=== PATIENT | female | born 1950 | race Caucasian/White ===

== ENCOUNTER 2021-01-24 05:58 | Inpatient (IN) | payer MEDICARE ==
[2021-01-24 06:15] VITALS: BMI 22.3
[2021-01-24 06:57] LABS: #Eosinphils 0.1 thou/uL (0.0-0.7); #Lymphocytes 1.3 thou/uL (1.20-3.40); #Monocytes 0.8 thou/uL (0.11-0.59); #Neutrophils 9.1 thou/uL (1.40-6.50); %Basophils 0.2 % (0.0-1.0); %Eosinophils 0.6 % (0.0-10.0); %Lymphocytes 11.8 % (21.0-51.0); %Monocytes 6.8 % (0.0-10.0); %Neutrophils 80.6 % (42.0-75.0); Hemoglobin 12.1 g/dL (12.0-16.0); Mean Corpuscular HGB CONC 33.9 g/dL (32.0-36.0); Mean Corpuscular Hemoglobin 32.4 pg (27.0-31.0); Mean Corpuscular Volume 95.7 fL (78.0-98.0); Mean Platelet Volume 7.8 fL (7.4-10.4); Platelet Count 258 thou/uL (130-400); RBC Distribution Width 11.7 % (11.5-14.5); Red Blood Cell (RBC) Count 3.72 mill/uL (4.20-5.40); White Blood Cell (WBC) Count 11.3 thou/uL (4.8-10.8)
[2021-01-24 07:20] LABS: ALT (SGPT) 25 U/L (8-55); AST (SGOT) 20 U/L (5-34); Albumin 3.8 g/dL (3.4-4.8); Alkaline Phosphatase 105 U/L (40-110); Anion Gap 11 mmol/L (10-20); BUN (Urea Nitrogen) 16 mg/dL (9.8-20.1); Bilirubin, Total 0.9 mg/dL (0.2-1.2); Calc. Creatinine Clearance 45 mL/min (70-130); Calcium 9.6 mg/dL (7.8-10.44); Carbon Dioxide 29 mmol/L (23-31); Chloride 104 mmol/L (98-107); Globulin 2.6 g/dL (2.4-3.5); Glucose 108 mg/dL (83-110); Potassium 3.9 mmol/L (3.5-5.1); Protein, Total 6.4 g/dL (5.8-8.1); Sodium 140 mmol/L (136-145)
[2021-01-24] MEDS ORDERED: Bupivacaine PF 0.5% 30 ML VIAL ONE (07:25)
[2021-01-24] MEDS ORDERED: EPINEPHrine 1 MG/ML AMP ONE (07:25)
[2021-01-24] MEDS: Morphine 4 MG/ML VIAL SLOW IVP PRN ×3 (07:28→22:04)
[2021-01-24] MEDS ORDERED: Piperacillin/Tazobactam 3.375 GM in Sodium Chloride 0.9% 100 ML IVPB SCH (07:30)
[2021-01-24] MEDS ORDERED: Phenylephrine 10 MG/ML VIAL ONE (07:34)
[2021-01-24] MEDS ORDERED: Piperacillin/Tazobactam 3.375 GM VIAL ONE ×2 (07:43→08:00)
[2021-01-24] MEDS ORDERED: Sodium Chloride 0.9% 100 ML ONE (08:00)
[2021-01-24] MEDS: Sodium Chloride 0.9% 1,000 ML IV SCH ×2 (08:26→14:10)
[2021-01-24 08:32] LABS: SARS-CoV-2 NAA Rapid Test Not Detected (NotDetected)
[2021-01-24] MEDS ORDERED: PROPOFOL 200 MG/20 ML VIAL ONE (08:34)
[2021-01-24] MEDS ORDERED: Glycopyrrolate 0.2 MG/ML 5 ML SYRINGE ONE (08:34)
[2021-01-24] MEDS ORDERED: Bupivacaine HCl 0.5%/Epinephrine 1:200,000/PF 30 ml Vial ONE (08:34)
[2021-01-24] MEDS ORDERED: Rocuronium Bromide 10 MG/ML (10ML VIAL) ONE (08:34)
[2021-01-24] MEDS ORDERED: Dexamethasone 20 MG/5 ML VIAL ONE (08:34)
[2021-01-24] MEDS ORDERED: Ondansetron PF 4 MG/2 ML Vial ONE (08:34)
[2021-01-24] MEDS ORDERED: Succinylcholine 200 MG/10 ml SYRINGE FS ONE (08:34)
[2021-01-24] MEDS ORDERED: Lidocaine 1% PF 5 ML VIAL ONE (08:34)
[2021-01-24] MEDS ORDERED: Promethazine HCl 25 MG/ML VIAL IVPB PRN (09:35)
[2021-01-24] MEDS ORDERED: Meperidine HCl/PF 25 MG/ML VIAL SLOW IVP PRN (09:35)
[2021-01-24] MEDS ORDERED: Ondansetron HCl/PF 4 MG/2 ML Vial IVP PRN (09:35)
[2021-01-24] MEDS ORDERED: Promethazine HCl 25 MG/ML VIAL IM PRN ×2 (09:35→13:39)
[2021-01-24] MEDS ORDERED: Fentanyl 100 MCG/2 ML VIAL ONE (11:37)
[2021-01-24] MEDS ORDERED: hydrALAZINE 20 MG/ML VIAL SLOW IVP PRN (13:39)
[2021-01-24] MEDS ORDERED: Zolpidem Tartrate 5 MG TAB PO PRN (13:44)
[2021-01-24] MEDS: Piperacillin/Tazobactam 3.375 GM in Sodium Chloride 0.9% 100 ML IVPB SCH ×2 (14:09→22:03)
[2021-01-24] MEDS: Ondansetron PF 4 MG/2 ML Vial IVP PRN (14:10)
[2021-01-24] MEDS: Famotidine 20 MG TAB PO SCH (20:17)
[2021-01-24] MEDS: Famotidine/PF 20 mg/2ml Vial SLOW IVP SCH (22:04)
[2021-01-25] MEDS: Morphine 4 MG/ML VIAL SLOW IVP PRN ×4 (05:16→20:37)
[2021-01-25 05:50] LABS: #Monocytes 0.5 thou/uL (0.11-0.59); #Neutrophils 9.2 thou/uL (1.40-6.50); %Basophils 0.1 % (0.0-1.0); %Neutrophils 85.9 % (42.0-75.0); Hemoglobin 10.8 g/dL (12.0-16.0); Mean Corpuscular HGB CONC 32.9 g/dL (32.0-36.0); Mean Corpuscular Hemoglobin 32.2 pg (27.0-31.0); Mean Corpuscular Volume 97.9 fL (78.0-98.0); Mean Platelet Volume 7.7 fL (7.4-10.4); Platelet Count 213 thou/uL (130-400); RBC Distribution Width 11.9 % (11.5-14.5); Red Blood Cell (RBC) Count 3.35 mill/uL (4.20-5.40); White Blood Cell (WBC) Count 10.7 thou/uL (4.8-10.8)
[2021-01-25] MEDS: Piperacillin/Tazobactam 3.375 GM in Sodium Chloride 0.9% 100 ML IVPB SCH ×3 (05:51→20:36)
[2021-01-25 06:15] LABS: Anion Gap 10 mmol/L (10-20); BUN (Urea Nitrogen) 15 mg/dL (9.8-20.1); Calc. Creatinine Clearance 47 mL/min (70-130); Calcium 8.6 mg/dL (7.8-10.44); Carbon Dioxide 26 mmol/L (23-31); Chloride 108 mmol/L (98-107); Glucose 118 mg/dL (83-110); Potassium 4.3 mmol/L (3.5-5.1); Sodium 140 mmol/L (136-145)
[2021-01-25] MEDS: Sodium Chloride 0.9% 1,000 ML IV SCH ×2 (07:28→15:03)
[2021-01-25] MEDS: D5 1/2 NS w/20 mEq KCL 1,000 ML IV SCH ×2 (11:28→20:45)
[2021-01-25] MEDS: Enoxaparin Sodium 40 MG/0.4 ML SYRINGE SC SCH (13:32)
[2021-01-25] MEDS ORDERED: HYDROcodone/Acetaminophen 7.5/325 mg Tablet PO PRN ×2 (13:40)
[2021-01-25] MEDS ORDERED: Acetaminophen 325 MG TAB PO PRN (13:40)
[2021-01-25] MEDS ORDERED: Acetaminophen 650 MG Suppository PR PRN (13:41)
[2021-01-25] MEDS: Famotidine 20 MG TAB PO SCH (20:19)
[2021-01-25] MEDS: Famotidine/PF 20 mg/2ml Vial SLOW IVP SCH (20:37)
[2021-01-26] MEDS: Piperacillin/Tazobactam 3.375 GM in Sodium Chloride 0.9% 100 ML IVPB SCH ×3 (04:36→20:57)
[2021-01-26] MEDS: Enoxaparin Sodium 40 MG/0.4 ML SYRINGE SC SCH (08:32)
[2021-01-26] MEDS: D5 1/2 NS w/20 mEq KCL 1,000 ML IV SCH ×2 (08:34→18:31)
[2021-01-26] MEDS: Ondansetron PF 4 MG/2 ML Vial IVP PRN (18:44)
[2021-01-26] MEDS: Famotidine 20 MG TAB PO SCH (20:58)
[2021-01-26] MEDS: Famotidine/PF 20 mg/2ml Vial SLOW IVP SCH (20:58)
[2021-01-26] MEDS: Morphine 4 MG/ML VIAL SLOW IVP PRN (21:06)
[2021-01-27] MEDS: D5 1/2 NS w/20 mEq KCL 1,000 ML IV SCH (02:58)
[2021-01-27] MEDS: Piperacillin/Tazobactam 3.375 GM in Sodium Chloride 0.9% 100 ML IVPB SCH (04:49)
[2021-01-27 08:02] VITALS: BP 128/55; TEMP 98.2
[2021-01-27] MEDS: Enoxaparin Sodium 40 MG/0.4 ML SYRINGE SC SCH (08:47)
== END 2021-01-27 10:40 | disposition home or self-care (01) | DRG 329 ==
LOC: T4-A 05:58 → SURG A 16:43
PROVIDERS: ADMIT Surgery; ATTEND Surgery
PROC: 0DBH0ZZ Excision of Cecum, Open Approach (ICD-10-PCS; principal; 2021-01-24)
DX: K56.2 Volvulus (principal); K55.049 Acute infarction of large intestine, extent unspecified; Q43.8 Other specified congenital malformations of intestine; Z20.822 Contact with and (suspected) exposure to COVID-19; Z90.710 Acquired absence of both cervix and uterus; Z98.890 Other specified postprocedural states
CPT/HCPCS: 36415; 71045; 74176; 80048; 80053; 85025; 86850; 86900; 86901; 88307; C1776; J0171; J1100; J1650; J2270; J2370; J2405; J2543; J2550; J2704; J3010; J3480; J3490; J7050; S0020; S0028; U0002

== ENCOUNTER 2021-02-28 21:17 | Emergency (ER) | payer MEDICARE ==
[2021-02-28 22:22] LABS: #Eosinphils 0.4 thou/uL (0.0-0.7); #Lymphocytes 2.3 thou/uL (1.20-3.40); #Monocytes 0.5 thou/uL (0.11-0.59); #Neutrophils 4.3 thou/uL (1.40-6.50); %Basophils 0.4 % (0.0-1.0); %Eosinophils 5.5 % (0.0-10.0); %Lymphocytes 30.1 % (21.0-51.0); %Monocytes 6.8 % (0.0-10.0); %Neutrophils 57.3 % (42.0-75.0); Hemoglobin 12.3 g/dL (12.0-16.0); Mean Corpuscular Hemoglobin 33.2 pg (27.0-31.0); Mean Corpuscular Volume 94.9 fL (78.0-98.0); Mean Platelet Volume 7.5 fL (7.4-10.4); Platelet Count 252 thou/uL (130-400); RBC Distribution Width 11.8 % (11.5-14.5); Red Blood Cell (RBC) Count 3.71 mill/uL (4.20-5.40); White Blood Cell (WBC) Count 7.5 thou/uL (4.8-10.8)
[2021-02-28 22:42] LABS: ALT (SGPT) 28 U/L (8-55); AST (SGOT) 30 U/L (5-34); Albumin 3.9 g/dL (3.4-4.8); Alkaline Phosphatase 122 U/L (40-110); Anion Gap 13 mmol/L (10-20); BUN (Urea Nitrogen) 14 mg/dL (9.8-20.1); Bilirubin, Total 0.3 mg/dL (0.2-1.2); Calc. Creatinine Clearance 0 mL/min (70-130); Calcium 9.7 mg/dL (7.8-10.44); Carbon Dioxide 23 mmol/L (23-31); Chloride 106 mmol/L (98-107); Globulin 2.8 g/dL (2.4-3.5); Glucose 89 mg/dL (83-110); Potassium 4.2 mmol/L (3.5-5.1); Protein, Total 6.7 g/dL (5.8-8.1); Sodium 138 mmol/L (136-145)
[2021-03-01] MEDS ORDERED: Ketorolac Tromethamine 30 MG/ML VIAL ONE (00:11)
[2021-03-01] MEDS ORDERED: Ondansetron PF 4 MG/2 ML Vial ONE (00:11)
[2021-03-01 02:51] LABS: Bacteria/HPF None Seen HPF (None Seen); Bilirubin Negative (Negative); Blood, Urine Negative (Negative); Clarity Clear (Clear); Glucose, Urine (Dipstick) Normal (Negative); Ketone, Urine Negative (Negative); Leukocyte 25 Leu/uL (Negative); Nitrite Negative (Negative); Protein, Urine (Dipstick) 10 mg/dL (Neg-Trace); RBC/HPF 0-3 HPF (0-3); Squamous Epithelial None Seen HPF (0-3); Urobilinogen Normal mg/dL (Less than 2); WBC/HPF 0-3 HPF (0-3); pH, Urine 5.5 (5.0-9.0)
[2021-03-01 02:52] LABS: Specific Gravity, Urine Greater than 1.060 (1.002-1.036)
== END 2021-03-01 03:18 | disposition home or self-care (01) ==
LOC: ERS 21:17
DX: R10.31 Right lower quadrant pain (principal); Z79.899 Other long term (current) drug therapy
CPT/HCPCS: 36415; 74177; 80053; 81003; 81015; 85025; 96374; 96375; J1885; J2405